=== PATIENT | male | born 1950 | race American Indian/Alaskan Native ===

== ENCOUNTER 2016-04-22 06:52 | Day surgery (SDC) | payer OTHER ==
[2016-04-19 13:13] LABS: Basophils % (Auto) 1.9 % (0.0-1.8); Eosinophils % (Auto) 3.8 % (0.0-4.3); Hematocrit 43.8 % (35.5-45.6); Mean Corpuscular HGB Conc 32 % (32-34); Mean Corpuscular Volume 76 fl (84-94); Platelet Count 214 K/mm3 (140-440); Red Blood Count 5.81 M/mm3 (3.65-5.03); White Blood Count 4.9 K/mm3 (4.5-11.0)
[2016-04-19 13:17] LABS: Mean Corpuscular Hemoglobin 24 pg (28-32)
[2016-04-19 13:20] LABS: Anion Gap 15 mmol/L; Blood Urea Nitrogen 11 mg/dL (9-20); Calcium 9.3 mg/dL (8.4-10.2); Carbon Dioxide 29 mmol/L (22-30); Chloride 99.1 mmol/L (98-107); Glucose 110 mg/dL (75-100); Potassium 3.7 mmol/L (3.6-5.0); Sodium 139 mmol/L (137-145)
--- NOTE | 2016-04-22 07:54 | Anesthesia Consultation ---
Anesthesia Consult and Med Hx Date of service: 04/22/16 - Airway Anesthetic Teeth Evaluation: Good ROM Head & Neck: Adequate Mental/Hyoid Distance: Adequate Mallampati Class: Class III Intubation Access Assessment: Possibly Difficult - Pre-Operative Health Status ASA Pre-Surgery Classification: ASA3 Proposed Anesthetic Plan: General - Pulmonary Hx Smoking: Yes (1/2 PPD X 52 YEARS) Hx Asthma: Yes Hx Sleep Apnea: Yes (uses CPAP) - Cardiovascular System Hx Hypertension: Yes (1983;PCP DR BRADY SCHAEFER) Hx Coronary Artery Disease: (high cholesterol) - Central Nervous System Hx Neuromuscular Disorder: Yes (arthritis) Hx Psychiatric Problems: No - Endocrine Hx Renal Disease: Yes (stones BPH) Hx Liver Disease: No - Other Systems Hx Alcohol Use: Yes (SOCIAL) Hx Substance Use: No Hx Cancer: No Hx Obesity: Yes (BMI 35.2)
--- NOTE | 2016-04-22 07:54 | Anesthesia Day of Surgery ---
Anesthesia Day of Surgery - Day of Surgery Patient Examined: Yes Patient H&P Reviewed: Yes Patient is NPO: Yes
[2016-04-22] MEDS ORDERED: NACL 0.9% 1000 ML 1,000 ML IV SCH (08:00)
[2016-04-22] MEDS ORDERED: ANCEF/STERILE WATER 2 GM/20 ML IV NR (08:00)
[2016-04-22] MEDS ORDERED: VERSED IV NR (08:00)
[2016-04-22] MEDS ORDERED: PEPCID IV NR (08:00)
[2016-04-22] MEDS ORDERED: XYLOCAINE MPF 2% ONE (09:05)
[2016-04-22] MEDS ORDERED: DIPRIVAN 10 MG/ML IV ONE (09:05)
[2016-04-22] MEDS ORDERED: SUBLIMAZE ONE (09:05)
--- NOTE | 2016-04-22 09:47 | Short Stay Summary ---
Short Stay Documentation Date of service: 04/22/16 - History H&P: obtained from office - Allergies and Medications Current Medications: Allergies codeine Adverse Reaction (Verified 11/30/13 09:04) Unknown doxycycline Adverse Reaction (Verified 11/30/13 09:04) Unknown oxaprozin [From Daypro] Adverse Reaction (Verified 11/30/13 09:04) Unknown Home Medications Medication Instructions Recorded Confirmed Last Taken Type Ascorbic Acid [Vitamin C] 1,000 mg PO DAILY 11/30/13 04/22/16 04/15/16 History Aspirin EC [Aspirin Enteric Coated 325 mg PO QDAY 11/30/13 04/15/16 03/17/16 History TAB] Ergocalciferol (Vitamin D2) 2,000 unit PO DAILY 11/30/13 04/15/16 04/15/16 History [Vitamin D2] Fluticasone [Flonase] 1 spray NS QDAY 11/30/13 04/22/16 04/22/16 History Lisinopril/Hydrochlorothiazide 1 tab PO QDAY 11/30/13 04/22/16 04/22/16 History [Zestoretic 20-12.5 mg] Lovastatin [Altoprev] 40 mg PO QPM 11/30/13 04/22/16 04/21/16 History Montelukast Sodium [Singulair] 10 mg PO DAILY 11/30/13 04/22/16 04/21/16 History Multivitamin [Multi Vitamin Daily] 1 each PO DAILY 11/30/13 04/15/16 04/15/16 History Potassium Chloride [Klor-Con 10] 10 meq PO DAILY 11/30/13 04/22/16 04/21/16 History Vit A & D3 in Cod Liver Oil [Cod 1 each PO DAILY 11/30/13 04/15/16 04/15/16 History Liver Oil Softgel] amLODIPine [Norvasc] 5 mg PO DAILY 11/30/13 04/22/16 04/22/16 History Aloe Vera 5,000 mg PO QDAY 04/15/16 04/15/16 04/15/16 History Ginseng 100 mg PO DAILY 04/15/16 04/15/16 04/15/16 History Multivit-Min/FA/Lycopen/Lutein 1 each PO DAILY 04/15/16 04/15/16 Unknown History [Centrum Silver Tablet] [place]-3 Fatty Acids [[place]-3] 100 mg PO DAILY 04/15/16 04/15/16 04/15/16 History Saw [place] 80 mg PO DAILY 04/15/16 04/15/16 04/15/16 History Active Medications Cefazolin Sodium (Ancef/Sterile Water 2 Gm/20 Ml) 2 gm IV PREOP NR Stop: 04/22/16 23:59 Famotidine (Pepcid) 20 mg IV PREOP NR Stop: 04/22/16 23:59 Last Admin: 04/22/16 08:14 Dose: 20 mg Sodium Chloride (Nacl 0.9% 1000 Ml) 1,000 mls @ 100 mls/hr IV DIRECT SLY Last Admin: 04/22/16 08:07 Dose: 100 mls/hr Midazolam HCl (Versed) 2 mg IV PREOP NR Stop: 04/22/16 23:59 Last Admin: 04/22/16 08:16 Dose: 2 mg - Brief post op/procedure progress note Date of procedure: 04/22/16 Pre-op diagnosis: left renal 14x4mm stone Post-op diagnosis: same Procedure: left renal eswl Anesthesia: GETA Findings: good vis Surgeon: CARISSA ZURITA Estimated blood loss: minimal Pathology: none Condition: stable - Hospital course Hospital course: or pacu home - Disposition Condition at discharge: Good Disposition: DISCHARGED TO HOME OR SELFCARE Short Stay Discharge Plan Activity: advance as tolerated Diet: advance as tolerated Follow up with: CARISSA ZURITA MD [Staff Physician] - 7 Days
[2016-04-22] MEDS ORDERED: ROBINUL ONE (10:27)
[2016-04-22] MEDS ORDERED: ZOFRAN ONE (10:27)
[2016-04-22] MEDS ORDERED: DECADRON ONE (12:15)
--- NOTE | 2016-04-22 12:53 | Post Anesthesia Evaluation ---
- Post Anesthesia Evaluation Patient Participated: Yes Airway Patent: Yes Stable Respiratory Function: Yes Nausea/Vomiting: No Temp > 96.8F: Yes Pain Manageable: Yes Adequeate Hydration: Yes Anesthesia Complications: No Block Receding Appropriately: Not Applicable Patient on Ventilator: No
[2016-04-22 13:46] VITALS: BP 116/71
--- NOTE | 2016-04-22 15:12 | Operative Report ---
UROLOGY OPERATIVE NOTE PREOPERATIVE DIAGNOSES: Left renal 14 mm calculus. POSTOPERATIVE DIAGNOSIS: Left renal 14 mm calculus. PROCEDURE: Left renal ESWL. SURGEON: Juliocesar Talley MD ANESTHESIA: General. SPECIMENS: None. ESTIMATED BLOOD LOSS: Minimal. COMPLICATIONS: None. FINDINGS: Good visualization of the stone and decreased density end of procedure. CLINICAL INDICATIONS: Counseled RCBA, primary urologist's, questions answered before procedure. DESCRIPTION OF PROCEDURE: The patient transferred to OR suite, supine position, anesthesia begun. Biplanar fluoroscopy was used to target the stone with an F2. A total of 2500 shocks were delivered with intermittent repositioning done as necessary. Procedure done at 4-5 kilovolts throughout the procedure. At the end of the procedure, there was some mild decrease in density of the stone. The patient was awakened and transferred to PACU in good and stable condition. Of note, the patient was having some spasms during the procedure, which required anesthesia, general endotracheal intubation for management. JOB# [id number] ATS/NTS
== END 2016-04-22 12:55 | disposition home or self-care (01) ==
LOC: OR 06:52
PROVIDERS: ATTEND Urology
DX: N20.0 Calculus of kidney (principal); M19.90 Unspecified osteoarthritis, unspecified site; E78.5 Hyperlipidemia, unspecified; F17.210 Nicotine dependence, cigarettes, uncomplicated; G47.33 Obstructive sleep apnea (adult) (pediatric); J45.909 Unspecified asthma, uncomplicated; I10 Essential (primary) hypertension; E66.9 Obesity, unspecified; Z68.35 Body mass index [BMI] 35.0-35.9, adult; Z72.89 Other problems related to lifestyle; Z82.49 Family history of ischemic heart disease and other diseases of the circulatory system; Z80.42 Family history of malignant neoplasm of prostate; Z83.3 Family history of diabetes mellitus
CPT/HCPCS: 36415; 50590; 80048; 85025; 93005; 93010; J0690; J1100; J2250; J2405; J2704; J3010; J7030

== ENCOUNTER 2018-11-27 07:54 | Day surgery (SDC) | payer MEDICARE, OTHER ==
--- NOTE | 2018-11-27 09:16 | Anesthesia Consultation ---
Anesthesia Consult and Med Hx Date of service: 11/27/18 - Airway Anesthetic Teeth Evaluation: Good ROM Head & Neck: Adequate Mental/Hyoid Distance: Adequate Mallampati Class: Class II Intubation Access Assessment: Good - Pulmonary Exam CTA: Yes - Cardiac Exam Cardiac Exam: RRR - Pre-Operative Health Status ASA Pre-Surgery Classification: ASA3 Proposed Anesthetic Plan: General (HTN, DM. MARISA, COPD , Smoker for GA) - Pulmonary Hx Smoking: Yes (1/2 PPD X54 YRS) Hx Asthma: Yes COPD: Yes (DAILY INHALER) Hx Sleep Apnea: Yes (DX SLEEP APNEA WITH CPAP USE.) - Cardiovascular System Hx Hypertension: Yes (1983) Hx Coronary Artery Disease: (high cholesterol) - Central Nervous System Hx Neuromuscular Disorder: Yes (arthritis) Hx Back Pain: Yes Hx Psychiatric Problems: No - Endocrine Hx Renal Disease: Yes (stones BPH) Hx Liver Disease: No - Other Systems Hx Alcohol Use: Yes (SOCIAL) Hx Substance Use: No Hx Cancer: No Hx Obesity: Yes (BMI 35.2)
--- NOTE | 2018-11-27 09:16 | Anesthesia Day of Surgery ---
Anesthesia Day of Surgery - Day of Surgery Patient Examined: Yes Patient H&P Reviewed: Yes Patient is NPO: Yes
[2018-11-27] MEDS ORDERED: LACTATED RINGERS 1,000 ML IV SCH (10:00)
[2018-11-27] MEDS ORDERED: VERSED IV NR (10:00)
[2018-11-27] MEDS ORDERED: GENTAMICIN 80 MG in NACL 0.9% 100 ML IV ONE (10:36)
[2018-11-27] MEDS ORDERED: GENTAMICIN/NS 100 MG/100 ML 100 MG/100 ML BAG IV ONE (10:44)
[2018-11-27] MEDS ORDERED: SUBLIMAZE ONE (11:07)
[2018-11-27] MEDS ORDERED: DIPRIVAN 10 MG/ML IV ONE (11:07)
[2018-11-27] MEDS ORDERED: OMNIPAQUE 300 MG/50 ML (CATH LAB) IV ONE (11:44)
--- NOTE | 2018-11-27 12:04 | Short Stay Summary ---
Short Stay Documentation Date of service: 11/27/18 - History H&P: obtained from office - Allergies and Medications Current Medications: Allergies codeine Allergy (Verified 11/22/18 18:07) PALPITATIONS dicyclomine Allergy (Verified 11/22/18 18:08) PALPITATIONS doxycycline Allergy (Verified 11/22/18 18:07) PALPITATIONS oxaprozin [From Daypro] Allergy (Verified 11/22/18 18:07) PALPITATIONS Home Medications Medication Instructions Recorded Confirmed Last Taken Type Ergocalciferol (Vitamin D2) 2,000 unit PO DAILY 11/30/13 11/22/18 11/26/18 08:00 History [Vitamin D2] Fluticasone [Flonase] 1 spray NS QDAY 11/30/13 11/22/18 04/22/16 History Lisinopril/Hydrochlorothiazide 1 tab PO QDAY 11/30/13 11/22/18 11/27/18 06:30 History [Zestoretic 20-12.5 mg] Lovastatin [Altoprev] 40 mg PO QPM 11/30/13 11/22/18 11/26/18 08:00 History Montelukast Sodium [Singulair] 10 mg PO DAILY 11/30/13 11/22/18 11/26/18 08:00 History Multivitamin [Multi Vitamin Daily] 1 each PO DAILY 11/30/13 11/22/18 11/26/18 08:00 History amLODIPine [Norvasc] 5 mg PO DAILY 11/30/13 11/22/18 11/27/18 06:30 History Ginseng 648 mg PO DAILY 04/15/16 11/22/18 11/26/18 08:00 History Ute-3 Fatty Acids [Ute-3] 100 mg PO DAILY 04/15/16 11/22/18 11/26/18 08:00 History Saw [place] 80 mg PO DAILY 04/15/16 11/22/18 11/26/18 08:00 History Albuterol Sulfate [Proventil Hfa] 2 puff IH PRN PRN 11/22/18 11/22/18 11/26/18 08:00 History Black Seed Oil 1 tab PO DAILY 11/22/18 11/22/18 11/26/18 08:00 History Fluticasone [Flonase] 1 spray NS QDAY 11/22/18 11/22/18 11/26/18 21:30 History Hydrocortisone 0.5% 1 applicatio TP PRN PRN 11/22/18 11/22/18 11/26/18 21:30 History [Hydrocortisone 0.5% CREAM] Testosterone [Testim] 1 dose PO DAILY 11/22/18 11/22/18 Unknown History Tiotropium [place] [Spiriva 2 puff IH DAILY 11/22/18 11/22/18 11/26/18 08:00 History Respimat] Turmeric 400 mg PO DAILY 11/22/18 11/22/18 11/26/18 08:00 History Vitamin B12 1,000 mg PO DAILY 11/22/18 11/22/18 11/26/18 08:00 History Vitamin B6 50 mg PO DAILY 11/22/18 11/22/18 11/26/18 08:00 History metFORMIN [Glucophage] 500 mg PO QDAY 11/22/18 11/22/18 11/26/18 08:00 History Active Medications Lactated Ringer's (Lactated Ringers) 1,000 mls @ 42 mls/hr IV DIRECT SLY Last Admin: 11/27/18 10:20 Dose: 42 mls/hr Documented by: Midazolam HCl (Versed) 2 mg IV PREOP NR Stop: 11/27/18 23:59 Last Admin: 11/27/18 11:16 Dose: 2 mg Documented by: - Brief post op/procedure progress note Date of procedure: 11/27/18 Pre-op diagnosis: bph, elevated psa Post-op diagnosis: same Procedure: cysto, rpg, pus 61cc, bx prostate Anesthesia: GETA Surgeon: MARKOS MURRAY Estimated blood loss: minimal Pathology: list (prostate cores) Specimen disposition: to lab Condition: stable - Hospital course Hospital course: cipro & dilaudid on chart - Disposition Condition at discharge: Stable Disposition: DC-01 TO HOME OR SELFCARE Short Stay Discharge Plan Follow up with: BRADY SINGH MD [Primary Care Provider] - 7 Days
--- NOTE | 2018-11-27 12:24 | Operative Report ---
PREOPERATIVE DIAGNOSIS: Elevated PSA, benign prostatic hyperplasia. POSTOPERATIVE DIAGNOSES: Elevated PSA, benign prostatic hyperplasia. PROCEDURE: Cystoscopy, bilateral retrograde pyelograms, transrectal ultrasound biopsies of prostate (61 g), saturation biopsy. SURGEON: John Paul Juárez MD ANESTHESIA: General. ESTIMATED BLOOD LOSS: Minimal. FLUIDS: Crystalloid. COMPLICATIONS: No complications. INDICATIONS: This patient is a 68-year-old gentleman known to my service with a history of kidney stones as well as elevated PSA. The patient had previous prostate biopsy for PSA of 7, which was negative in 2015. ConfirmMDx testing of his specimen was positive on the left apex. We repeated his PSA recently and it was 8. [facility] and [facility] was 10. MRI was obtained at that point, and he was found to have a small lesion on the left side as well as the right side. We were unable to get a fusion biopsy; and therefore; he presents now for saturation biopsy. Risks, benefits, and complications were explained. The patient agreed to proceed. DESCRIPTION OF PROCEDURE: The patient was taken to the operative suite, placed in a supine position and after adequate general anesthesia placed in a dorsal lithotomy position, prepped and draped in a sterile fashion. Pancystourethroscopy was performed with 22-Macedonian Storz cystoscope, no urethral abnormalities. His prostate did display moderate trilobar prostatic obstruction. In his bladder, no tumors or stones were noted. Bilateral retrograde pyelograms were obtained with an 8-Macedonian [place] catheter and 8 mL of contrast. No filling defects or obstruction. He did have some J hooking of the lower ureter. Next, using the transrectal ultrasound and Bard biopsy gun, ultrasound revealed 61-g gland, could not appreciate any suspicious areas on ultrasound; however, at that point, I elected to do saturation biopsies; and therefore, a 24-template biopsy was obtained. The patient tolerated the procedure well. His bladder was drained. Rectal exam was benign. He was extubated and taken to the recovery room. He will go home on Cipro and Dilaudid and follow up in the office. JOB# [id number] Tamera/ANDIE
[2018-11-27] MEDS ORDERED: XYLOCAINE MPF 2% ONE (12:27)
[2018-11-27] MEDS ORDERED: ZOFRAN ONE (12:30)
[2018-11-27 13:43] VITALS: BP 131/83
--- NOTE | 2018-11-27 14:10 | Fluoroscopy Report ---
FLUOROSCOPY RETROGRADE UROGRAPHY HISTORY: Elevated PSA and benign prosthetic hyperplasia FINDINGS: 0.3 minutes of fluoroscopy time was provided by radiology during retrograde urography by payton esparza urologist. 8 fluoroscopic images are presented. There is normal filling of the renal collecting sys tems bilaterally. No filling defect or abnormal dilatation is identified. Please correlate with the p rocedural report by urology as needed. IMPRESSION: Unremarkable bilateral retrograde pyelograms. Signer Name: Isaias Bolton Jr, MD Signed: 11/27/2018 2:06 PM Workstation Name: [id number]
--- NOTE | 2018-11-28 07:50 | Ultrasound Report ---
ULTRASOUND TRANSRECTAL HISTORY: Guidance for prostate biopsy. Elevated PSA and benign prosthetic hyperplasia. FINDINGS: Transrectal ultrasound guidance was provided by radiology during prostate biopsy by the uro logist. Prostate volume measures 62.0 cc. An approximate 2 cm nodule is suggested in the right side o f the prostate gland. The rectal wall appears intact on ultrasound. Please correlate with the procedu ral report by Dr. Juárez if needed. IMPRESSION: Successful ultrasound guidance for prostate biopsy. Signer Name: Isaias Bolton Jr, MD Signed: 11/28/2018 7:46 AM Workstation Name: [id number]
== END 2018-11-27 07:55 | disposition home or self-care (01) ==
LOC: OR 07:54
PROVIDERS: ATTEND Urology
DX: N40.0 Benign prostatic hyperplasia without lower urinary tract symptoms (principal); F17.210 Nicotine dependence, cigarettes, uncomplicated; M19.90 Unspecified osteoarthritis, unspecified site; I25.10 Atherosclerotic heart disease of native coronary artery without angina pectoris; J44.9 Chronic obstructive pulmonary disease, unspecified; G47.30 Sleep apnea, unspecified; E66.9 Obesity, unspecified; Z68.36 Body mass index [BMI] 36.0-36.9, adult; Z87.442 Personal history of urinary calculi; Z72.89 Other problems related to lifestyle; Z98.890 Other specified postprocedural states; Z88.5 Allergy status to narcotic agent; Z88.8 Allergy status to other drugs, medicaments and biological substances; Z79.899 Other long term (current) drug therapy; Z79.84 Long term (current) use of oral hypoglycemic drugs; Z98.49 Cataract extraction status, unspecified eye
CPT/HCPCS: 52005; 55700; 74420; 76872; 82803; 82962; 88305; J1580; J2250; J2704; J3010; J7120; Q9967; 88342; C1758; J2405

== ENCOUNTER 2018-12-19 07:12 | Outpatient (CLI) | payer MEDICARE ==
--- NOTE | 2018-12-19 09:22 | Cat Scan Report ---
CT ABDOMEN AND PELVIS WITHOUT CONTRAST HISTORY: C61 MALIGNANT NEOPLASM OF PROSTATE COMPARISON: None. TECHNIQUE: Axial CT images were obtained through the abdomen and pelvis without IV contrast. Sagittal and coronal reformatted images. All CT scans at this location are performed using CT dose reduction for ALARA by means of automated exposure control. FINDINGS: CT ABDOMEN: Lung Bases: Clear. Liver: The liver is normal size, contour and density. There are numerous small liver hypodensities ra nging from a few millimeters to 2.5 cm in diameter which appear to represent cysts and/or hemangiomas . Biliary: No significant abnormality. Spleen: No significant abnormality. Unenlarged. Pancreas: No significant abnormality. Adrenals: No significant abnormality. Kidneys: There are 2 cysts in the inferior right kidney measuring 2 cm and 4 cm respectively. No left renal lesions. A 2 mm calyceal stone is identified at the inferior pole of the right kidney. 2 calyc eal stones measuring 5 mm are identified at the inferior pole of the left kidney. The ureters are nor mal course and caliber. Lymphatics: No lymphadenopathy. Vasculature: Mild aortic and iliac calcifications. No aneurysm. Bowel/Peritoneum: There are a few scattered diverticula in the sigmoid colon. No evidence for focal i nflammation, mass or obstruction. No free fluid or free air. Normal appendix. CT PELVIS: : The bladder and distal ureters are unremarkable. The prostate gland appears mildly enlarged parti cularly the left side of the prostate. Osseous Structures: Mild thoracolumbar spondylosis. No suspicious blastic bony lesions are identified . Additional Findings: None IMPRESSION: No definite signs of metastatic disease. Multiple small liver hypodensities which are incompletely evaluated on noncontrast exam. I suspect th mando represent multiple cysts and or hemangiomas. This could be further evaluated with CT abdomen with contrast 4 phase liver protocol if needed. Mild sigmoid diverticulosis. Right renal cysts. Bilateral nephrolithiasis, nonobstructing. No suspicious bony lesions or lymph nodes. Signer Name: Isaias Bolton Jr, MD Signed: 12/19/2018 9:18 AM Workstation Name: [id number]
--- NOTE | 2018-12-19 12:03 | Nuclear Medicine Report ---
. NUCLEAR MEDICINE BONE SCAN, WHOLE BODY INDICATION: C61 MALIGNANT NEOPLASM OF PROSTATE. TECHNIQUE: 25 mCi of Tc-99m MDP were injected IV. Whole body images were obtained. Lateral views of the head and neck were also obtained. COMPARISON: Noncontrast CT abdomen and pelvis performed the same day. FINDINGS: Skeletal Structures: Fairly symmetric, likely degenerative uptake is present involving the shoulders , sternoclavicular joints, spine, knees and feet.. Skeletal Lesions: No definite suspicious bony lesions are identified to suggest a metastatic process. . Soft Tissues: Normal. Kidneys: Normal, symmetric activity. Additional Findings: None. IMPRESSION: Degenerative uptake as described. No evidence for metastatic disease to the bones on bone scan. Signer Name: Isaias Bolton Jr, MD Signed: 12/19/2018 11:58 AM Workstation Name: [id number]
== END 2018-12-19 07:13 | disposition home or self-care (01) ==
LOC: NM 07:12
PROVIDERS: ATTEND Urology
DX: C61 Malignant neoplasm of prostate (principal); M47.895 Other spondylosis, thoracolumbar region; I25.10 Atherosclerotic heart disease of native coronary artery without angina pectoris; I10 Essential (primary) hypertension; J44.9 Chronic obstructive pulmonary disease, unspecified
CPT/HCPCS: 74176; 78306; A9503

== ENCOUNTER 2021-01-27 11:55 | Outpatient (CLI) | payer MEDICARE ==
--- NOTE | 2021-01-27 14:25 | Cat Scan Report ---
CT ABDOMEN AND PELVIS WITHOUT CONTRAST INDICATION / CLINICAL INFORMATION: CALCULUS OF KIDNEY. TECHNIQUE: Axial CT images were obtained through the abdomen and pelvis without IV contrast. Sagittal and weston l reformatted images. All CT scans at this location are performed using CT dose reduction for ALARA b y means of automated exposure control. COMPARISON: 12/19/2018 FINDINGS: LOWER CHEST: No significant abnormality. LIVER: There are several liver cysts ranging from 1 cm to 3 cm in diameter which are unchanged. GALLBLADDER: No significant abnormality. BILE DUCTS: No significant abnormality. PANCREAS: No significant abnormality. SPLEEN: No significant abnormality. ADRENALS: No significant abnormality. RIGHT KIDNEY and URETER: 2 simple appearing cysts in the inferior right kidney are unchanged measurin g 2 cm and 4 cm. Stable 2 mm calyceal stone at the inferior pole. No ureteral stones or hydronephrosi s. LEFT KIDNEY and URETER: 2 calyceal stones measuring up to 5 mm are again identified at the inferior p ole. No focal renal lesion, ureteral stone or hydronephrosis. STOMACH and SMALL BOWEL: No significant abnormality. COLON: Mild diverticulosis of the sigmoid colon is again noted. No acute inflammation. APPENDIX: No significant abnormality. PERITONEUM: No free fluid. No free air. No fluid collection. LYMPH NODES: No significant adenopathy. AORTA and ARTERIES: Mild atherosclerotic calcification without acute abnormality. IVC and VEINS: No significant abnormality. URINARY BLADDER: The bladder is mostly empty. Mild diffuse bladder wall thickening is suggested which probably represents trabeculation. A cystitis could also be considered. REPRODUCTIVE ORGANS: The prostate gland measures 4.5 cm in diameter. ADDITIONAL FINDINGS: None. SKELETAL SYSTEM: Stable mild thoracolumbar spondylosis. IMPRESSION: No significant change is appreciated since 12/19/2018 exam. Bilateral renal stones and right renal cys ts are identified as described which appear unchanged. No ureteral stones or hydronephrosis. The bladder is poorly distended but mild bladder wall thickening is suggested consistent with trabecu lation or cystitis. Multiple liver hypodensities consistent with cysts, stable. Mild sigmoid diverticulosis. Signer Name: Isaias Bolton Jr, MD Signed: 01/27/2021 2:21 PM Workstation Name: [id number]
== END 2021-01-27 11:56 | disposition home or self-care (01) ==
LOC: CT 11:55
PROVIDERS: ATTEND Urology
DX: N20.0 Calculus of kidney (principal); K57.30 Diverticulosis of large intestine without perforation or abscess without bleeding; N28.1 Cyst of kidney, acquired; M47.895 Other spondylosis, thoracolumbar region
CPT/HCPCS: 74176